=== PATIENT | female | born 1940 | race Caucasian/White ===

== ENCOUNTER 2017-03-01 10:59 | Day surgery (SDC) | payer MEDICARE, BC ==
--- NOTE | 2017-03-01 10:14 | History and Physical Report ---
CHIEF COMPLAINT/HISTORY OF CHIEF COMPLAINT: This patient with a history of an implanted spinal cord stimulator with generator has had a number of issues since a revision approximately a year ago. Because of the issues she failed to recharge the system and stopped using the device. She was given the option to revise or replace and she opted to remove. PAST MEDICAL HISTORY: Hypertension, cerebrovascular disease, asthmatic bronchitis and scoliosis. PAST SURGICAL HISTORY: List to be provided. MEDICATIONS ON ADMISSION: List to be provided. ALLERGIES: List to be provided. SOCIAL HISTORY: Caffeine. FAMILY HISTORY: Asthma, coronary artery disease, and hypertension. SYSTEMS REVIEW: The patient is appropriate in no acute distress. The remainder of the systems review is positive for blood pressure problems, chronic lung disease, bladder dysfunction, and sleep disturbance. PHYSICAL EXAMINATION: Height is 5', weight is 190. No vital signs. HEENT: Within normal limits. LUNGS: Clear. HEART: Regular rate and rhythm. ABDOMEN: Nontender. MUSCULOSKELETAL: Examination of the musculoskeletal system shows leads in the midline spinal space at approximately T12-L1 and the generator at the posterior gluteal margin. All incisions are intact. NEUROLOGIC: Cranial nerves are intact. IMPRESSION: 1. INTRACTABLE POST LAMINECTOMY SYNDROME, ICD10 CODE M96.1. 2. LUMBAR RADICULITIS, ICD10 CODE M54.16 AND M54.17. 3. SPINAL CORD STIMULATOR NONFUNCTIONAL. PLAN: The patient is here for removal of the stimulator and generator on an outpatient basis. ESTELITA BURK D.O. Date & Time JOB NUMBER: [id number] MTDD
[~2017-03-01 10:59] MED LIST: ACETAMINOPHEN 1000MG/100 ML PREMIX IV ONE; CEFAZOLIN 2 Gram 50 ML IVPB ONE; FAMOTIDINE 20MG TABLET PO ONE; MECLIZINE 25 MG TABLET PO ONE; METOCLOPRAMIDE 10 MG TABLET PO ONE
[2017-03-01] MEDS ORDERED: PROPOFOL 10 MG/ML VIAL IV ONE (14:00)
[2017-03-01] MEDS ORDERED: FENTANYL PF 100MCG/2ML VIAL IV ONE (14:00)
[2017-03-01] MEDS ORDERED: LIDOCAINE 2% MDV (20MG/ML) 20ML VIAL IV ONE (14:00)
[2017-03-01] MEDS ORDERED: MIDAZOLAM HCL 2MG/2ML VIAL IV ONE (14:00)
[2017-03-01] MEDS ORDERED: CEFAZOLIN 1G VIAL IM ONE (14:00)
--- NOTE | 2017-03-02 15:12 | Operative Note - [place] ---
DATE OF SURGERY: 03/01/17 PREOPERATIVE DIAGNOSES: 1. POST LUMBAR LAMINECTOMY SYNDROME, ICD-10 CODE = M96.1. 2. LUMBAR RADICULITIS, ICD-10 CODE = M54.16 AND M54.17. 3. IMPLANTED SPINAL CORD STIMULATOR INTERNAL GENERATOR, NONFUNCTIONAL. SURGERY: 1. FLUOROSCOPICALLY-GUIDED INCISION, SUBCUTANEOUS DISSECTION, AND REMOVAL OF TWO SPINAL CORD STIMULATOR LEADS IMPLANTED. 2. INCISION, SUBCUTANEOUS DISSECTION, AND REMOVAL OF INDWELLING SPINAL CORD STIMULATOR GENERATOR, RIGHT POSTERIOR GLUTEAL MARGIN. SURGEON: ESTELITA BURK D.O. ANESTHESIA: LOCAL SEDATION. ANESTHESIA PROVIDER: MORTEZA PRITCHARD CRNA. INDICATION: This patient presents with a history of intractable lumbar radiculitis postlaminectomy managed by spinal cord stimulation. Roughly three to four months ago, this patient slipped and fell resulting in changes in stimulation patterns. All conservative efforts failed. She was given the option to remove and replace; she opted to remove. PROCEDURE: Intravenous line, vital sign monitoring, IV sedation by Anesthesia. Prepped, draped sterile technique. Under imaging, the two spinal cord stimulators were imaged, identified, and marked on the skin where the anchors were located. Skin infiltrated, incision made, and subcutaneous dissection was conducted to the anchor lead 1 and then separately to the anchor lead 2. Each of the two leads was then removed intact. All electrodes accounted for. At the right posterior gluteal margin generator site, skin infiltrated, incision made, and subcutaneous dissection was conducted to the generator. The generator was then exteriorized and its interface to the leads removed intact. Antibiotic irrigation. Bovie for hemostasis. The incisions were then closed Vicryl for fascia, running subcuticular Vicryl for skin. Dermabond closure system placed. She was transported to the Recovery Room, stable, showing no side-effects from the procedure or the sedation. When fully awake and alert, discharge instructions provided. DISCHARGE INSTRUCTIONS: 1. The sites will remain clean and dry although the Dermabond will allow showering. 2. Standard medications resumed including Levaquin, the antibiotic, 500 mg once a day for 14 days. 3. The office will contact the patient at home within the next two days to set up an appointment to evaluate the incisional sites in 5-7 days. Her activity should stay low during this period of time. She will be evaluated for increasing activities at that time. Should she have problems with the antibiotic , she should contact the clinic for substitution. All other instructions provided, numbers to contact, problems given. At that point, she was discharged. ESTELITA BURK D.O. Date & Time cc: Dr. Rocha JOB NUMBER: [id number] MTDD
== END 2017-03-01 14:35 | disposition home or self-care (01) ==
LOC: SUR 10:59
PROVIDERS: ATTEND Pain Medicine Interventional Pain Medicine
DX: T85.193A Other mechanical complication of implanted electronic neurostimulator, generator, initial encounter (principal); E03.9 Hypothyroidism, unspecified; E78.00 Pure hypercholesterolemia, unspecified
CPT/HCPCS: 63661; 63688; 00300; J3010; J0690